=== PATIENT | male | born 2000 | race Caucasian/White ===

== ENCOUNTER 2025-06-30 06:12 | Day surgery (SDC) | payer OTHER, SELFPAY ==
[2025-06-30] VITALS (7 sets, daily range): BP systolic 99–132; BP diastolic 64–81; BMI 17.4
[2025-06-30] MEDS: NORMOSOL-R/PLASMALYTE-A 1000 IV (11:53)
[2025-06-30] MEDS: TRANSDERM-SCOP 1 PATCH TRANSDERM (11:54)
[2025-06-30] MEDS: TYLENOL 1000 MG PO (11:54)
--- NOTE | 2025-06-30 15:27 | OR.RPT ---
Operative Report
Operative Report
Patient name: Awais Guo
Date of : 2000

Date of procedure: 06/30/2025
Preoperative diagnosis: Nasal obstruction, deviated nasal septum, inferior turbinate hypertrophy
Postoperative diagnosis: Same
Procedures performed: Septoplasty, submucous resection inferior turbinates
Surgeon: Reese Rodríguez DO
Anesthesiologist: Dr. Baptiste
Anesthesia: General, ETT
Surgical indications: Awais is a 24-year-old man who presented to the otolaryngology department with a chief complaint of severe left-sided nasal obstruction present for several years that he is now bothered with. Physical exam and nasal
endoscopy demonstrated a severely deviated left nasal septum causing near complete obstruction of the left nasal cavity at contacting left inferior turbinate. After a course of intranasal corticosteroids that did not relieve his symptoms he elected
to proceed with septoplasty and inferior turbinate reduction. He accepted all risks and benefits of this procedure which included but were not limited to pain, infection, bleeding, need for additional procedures and septal perforation.
Details of procedure: The patient was met in the preoperative holding area and all questions were answered and informed written consent was reviewed. He was then brought to the operating room and transferred supine on the operating room table. A
safety strap was placed. The anesthesia team induced general anesthesia and he was intubated orotracheally without difficulty. A surgical timeout was then performed confirming the necessary perioperative information. Topical 4% cocaine pledgets
were placed in the bilateral nasal cavities for decongestion. The equipment was set up. The nasal cavity was then expected after the pledgets were removed and there was a severe left nasal septal deviation. 1% lidocaine with epinephrine 1-100,000
was then used to infiltrate the bilateral nasal cavities. A total of 20 cc was used. The cocaine pledgets were replaced for additional decongestion and then removed the left side and a #15 blade was used to make a left hemitransfixion incision at
the caudal edge of the left cartilaginous septum. The incision was taken through the mucosa and submucosa and then feathered through down to the cartilage. A Dragan elevator was used to establish a submucoperichondrial pocket and this was expanded
and dissected to raise a submucoperichondrial flap from anterior to posterior and superior to inferior. Care was taken around the severe left septal spur and deviation. A #15 blade was then used to make a trans cartilaginous incision approximately
2 cm distal from the caudal edge of the cartilaginous septum as the anteriormost portions of cartilage were midline and so as to preserve structural support. Dissection was carried out in a similar manner on the contralateral side and the
cartilaginous and bony septum were isolated. The deviated portions of cartilaginous septum were removed in piecemeal to mitigate septal perforation. These were sent as septal contents. Deviated portions of bone were removed using a combination of
double-action rongeur, Blakesley forcep, Mifflin elevator and 4 mm osteotome and mallet. There was a severe maxillary crest deviation into the left nasal cavity causing a substantial amount of the obstruction and this was removed using a Dragan
elevator and 4 mm osteotome and a mallet. After deviated segments were removed, the bilateral middle meatal eye were more readily visualized and the nasopharynx could be seen from the nare. Next a #15 blade was used to make a stab incision in the
anterior head of each inferior turbinate. A Dragan elevator was then used to establish as submucoperichondrial pocket along the length of each inferior turbinate. A microdebrider turbinate blade was then used to perform submucous resection.
Outfracture was then performed using a long nasal speculum. This improved the patency of the nasal cavity. Next the hemitransfixion incision was closed using a 4-0 chromic stitch in a simple interrupted fashion. A quilting stitch was then placed
using a 4-0 plain gut stitch on a Carlos needle. Silicone Alvarez splints with the inner tubes excised were placed in the bilateral nasal cavities to facilitate healing and sewn in place using a 2-0 silk stitch transseptally. This concluded the
procedure. The patient tolerated well. The anesthesia team then safely emerged him from general anesthesia and extubated him without difficulty. He was taken to the PACU in stable condition.
Specimens: Septal contents
Estimated blood loss: 5 cc
Complications: None immediately present
Disposition: Stable to PACU followed by discharge to home.
== END 2025-06-30 16:57 | disposition home or self-care (01) ==
LOC: SDS 06:12
PROVIDERS: ATTENDING PHYSICIAN Student in an Organized Health Care Education/Training Program
DX: J34.89 Other specified disorders of nose and nasal sinuses (principal); J34.2 Deviated nasal septum; J34.3 Hypertrophy of nasal turbinates
CPT/HCPCS: 30140; 30520; 88300